=== PATIENT | female | born 1980 | race Caucasian/White ===

== ENCOUNTER → 2016-06-17 | Outpatient (CLI) | payer OTHER ==
[~2016-06-17] MED LIST: BUTALB-APAP-CA1 EACH PO; CHILD ASPIRIN81 M1 PO; DICLEGIS DR 101 EACH PO; ENDOCET 5-3251 EACH PO; FERROUS SULFAT325 MG PO; FISH OIL500 MG PO; IBUPROFEN800 MG PO; PRENATAL VITAM1 EAC1 PO; PROMETHAZINE HC25 M1 PO; PROMETHAZINE12.5 M1 PO; PROZAC20 MG PO; TYLENOL EXTRA500 MG PO
== END | disposition home or self-care (01) ==
LOC: RAD 14:51
PROC: 009U3ZZ Drainage of Spinal Canal, Percutaneous Approach (ICD-10-PCS; principal; 2016-06-17)
DX: H47.11 Papilledema associated with increased intracranial pressure (principal)
CPT/HCPCS: 62270; 77003; 82945; 83916 90; 84157; 87070; 87205; 87210

== ENCOUNTER 2017-04-01 07:04 | Day surgery (SDC) | payer OTHER ==
[~2017-04-01] VITALS: Ht 162.6 cm; Wt 63.5 kg
[~2017-04-01 07:04] MED LIST changes: +SERTRALINE HCL25 MG PO; +TOPAMAX25 MG PO; +XANAX0.5 MG PO
[2017-04-01 08:35] VITALS: BP 115/66
[2017-04-01] MEDS ORDERED: METAMUCIL FIBE3.4 GM PO (11:52)
[2017-04-01] MEDS ORDERED: MOTRIN600 MG PO (11:52)
[2017-04-01 12:20] VITALS: BP 100/57
[2017-04-01 13:20] VITALS: BP 93/55
== END 2017-04-01 13:40 | disposition home or self-care (01) ==
LOC: SDC 07:04
PROC: 06BY0ZC Excision of Hemorrhoidal Plexus, Open Approach (ICD-10-PCS; principal; 2017-04-01)
DX: K64.4 Residual hemorrhoidal skin tags (principal); I44.7 Left bundle-branch block, unspecified
CPT/HCPCS: 88304; J0131; J0690; J1885; J2250; J3010; Q0175